=== PATIENT | male | born 1985 | race Two or more races ===

== ENCOUNTER 2017-11-09 23:12 | Inpatient (IN) | payer OTHER ==
[~2017-11-09] VITALS: Ht 170.2 cm; Wt 70.0 kg
[2017-11-10 00:47] LABS: HEMATOCRIT 49.8 % (38.0-50.0); HEMOGLOBIN 18.2 G/DL (12.5-16.6); MCH 34.4 PG (29.0-34.0); MCHC 36.5 G/DL (30.0-36.0); MCV 94.1 FL (86-99); PLATELET COUNT 278 K/uL (156-360); RBC DIS.WIDTH-CV 11.7 % (11.8-14.6); RBC DIS.WIDTH-SD 40.6 % (39-53); RED BLOOD COUNT 5.29 M/uL (4.00-5.50); WHITE BLOOD COUNT 12.8 K/uL (4.1-10.2)
[2017-11-10 00:58] LABS: AMPHETAMINE NEGATIVE (500 ng/mL); BARBITURATES NEGATIVE (200 ng/mL); BENZODIAZEPINES NEGATIVE (150 ng/mL); BUPRENORPHINE NEGATIVE (10 ng/mL); COCAINE NEGATIVE (150 ng/mL); METHADONE NEGATIVE (200 ng/mL); METHAMPHETAMINE NEGATIVE (500 ng/mL); OPIATES (MORPHINE) NEGATIVE (100 ng/mL); OXYCODONE NEGATIVE (100 ng/mL); PHENCYCLIDINE NEGATIVE (25 ng/mL); PROPOXYPHENE NEGATIVE (300 ng/mL); THC CANNABINOIDS NEGATIVE (50 ng/mL); TRICYCLIC ANTIDEPRESSANTS NEGATIVE (300 ng/mL)
[2017-11-10 01:05] LABS: CHLORIDE 107 mEq/L (99-109); POTASSIUM 3.7 mEq/L (3.7-5.4); SODIUM 144 mEq/L (136-147)
[2017-11-10 01:07] LABS: GLUCOSE 112 mg/dL (70-99)
[2017-11-10 01:10] LABS: SERUM ETHYL ALCOHOL 221 mg/dL
[2017-11-10 01:11] LABS: CREATININE 0.9 mg/dL (0.6-1.3); GFR ESTIMATE (CALCULATED) > 59 mL/min/ (58.99-99999)
[2017-11-10 01:12] LABS: UREA NITROGEN (BUN) 15 mg/dL (9-23)
[2017-11-10 09:49] VITALS: BP 139/84
[2017-11-10 15:59] VITALS: BP 136/69
[2017-11-11 07:51] VITALS: BP 134/73
[2017-11-11] MEDS ORDERED: DISULFIRAM250 MG PO (09:39)
[2017-11-11] MEDS ORDERED: EFFEXOR XR37.5 MG PO (09:39)
[2017-11-11] MEDS ORDERED: DESYREL100 MG PO (09:39)
== END 2017-11-11 14:28 | disposition home or self-care (01) | DRG 882 ==
LOC: EME → EDBD 23:12 → EME 23:12 → 1WEST 11-10 06:11 → EDOF 11-10 06:11 → ENRESERV 11-10 09:33 → 1WEST 11-10 09:34
PROVIDERS: Emergency Medicine
DX: F43.25 Adjustment disorder with mixed disturbance of emotions and conduct (principal); R45.851 Suicidal ideations; F17.200 Nicotine dependence, unspecified, uncomplicated; F10.229 Alcohol dependence with intoxication, unspecified; F90.9 Attention-deficit hyperactivity disorder, unspecified type
CPT/HCPCS: 80048; 85027; 90837; 99281; 99285; G0480

== ENCOUNTER 2017-12-15 22:07 | Emergency (ER) | payer OTHER ==
[~2017-12-15] VITALS: Ht 167.6 cm; Wt 65.2 kg
[~2017-12-15 22:07] MED LIST: DESYREL100 MG PO; DISULFIRAM250 MG PO; EFFEXOR XR37.5 MG PO
[2017-12-16] MEDS ORDERED: EFFEXOR XR37.5 MG PO (00:19)
[2017-12-16 00:34] VITALS: BP 151/98
== END 2017-12-16 00:36 | disposition home or self-care (01) ==
LOC: EME 22:07 → EXP 22:07
DX: Z76.0 Encounter for issue of repeat prescription (principal); F31.9 Bipolar disorder, unspecified
CPT/HCPCS: 99281; 99283

== ENCOUNTER 2017-12-21 10:24 | Emergency (ER) | payer OTHER ==
[~2017-12-21] VITALS: Ht 167.6 cm; Wt 64.7 kg
[2017-12-21] MEDS ORDERED: EFFEXOR XR37.5 MG PO (11:18)
[2017-12-21] MEDS ORDERED: DESYREL100 MG PO (11:18)
[2017-12-21] MEDS ORDERED: ANTABUSE500 MG PO (11:18)
[2017-12-21 11:32] VITALS: BP 131/94
== END 2017-12-21 11:33 | disposition home or self-care (01) ==
LOC: EME 10:24
DX: F41.9 Anxiety disorder, unspecified (principal); Z76.0 Encounter for issue of repeat prescription; F43.25 Adjustment disorder with mixed disturbance of emotions and conduct; F31.9 Bipolar disorder, unspecified; F90.9 Attention-deficit hyperactivity disorder, unspecified type; F17.200 Nicotine dependence, unspecified, uncomplicated
CPT/HCPCS: 90839; 99281; 99283

== ENCOUNTER 2017-12-22 11:15 | Emergency (ER) | payer OTHER ==
[~2017-12-22] VITALS: Ht 167.6 cm; Wt 64.0 kg
[~2017-12-22 11:15] MED LIST changes: +ANTABUSE500 MG PO
[2017-12-22 12:11] VITALS: BP 126/84
== END 2017-12-22 12:16 | disposition home or self-care (01) ==
LOC: EME 11:15
DX: F41.9 Anxiety disorder, unspecified (principal); Z02.9 Encounter for administrative examinations, unspecified
CPT/HCPCS: 99281; 99283

== ENCOUNTER 2018-02-19 15:53 | Emergency (ER) | payer OTHER ==
[~2018-02-19] VITALS: Ht 167.6 cm; Wt 65.4 kg
[2018-02-19] MEDS ORDERED: NAPROSYN500 MG PO (17:01)
[2018-02-19] MEDS ORDERED: FLEXERIL10 MG PO (17:01)
[2018-02-19] MEDS ORDERED: VOLTAREN 1% GE100 GM TP (17:09)
[2018-02-19 17:12] VITALS: BP 126/78
== END 2018-02-19 17:13 | disposition home or self-care (01) ==
LOC: EME 15:53
DX: M46.1 Sacroiliitis, not elsewhere classified (principal); M54.41 Lumbago with sciatica, right side; M41.9 Scoliosis, unspecified; Z88.5 Allergy status to narcotic agent
CPT/HCPCS: 99281; 99283; J1885

== ENCOUNTER 2018-02-23 13:37 | Emergency (ER) | payer OTHER ==
[~2018-02-23] VITALS: Ht 167.6 cm; Wt 66.4 kg
[~2018-02-23 13:37] MED LIST changes: +FLEXERIL10 MG PO; +NAPROSYN500 MG PO; +VOLTAREN 1% GE100 GM TP
[2018-02-23] MEDS ORDERED: FLEXERIL10 MG PO (14:25)
[2018-02-23 14:59] VITALS: BP 123/66
== END 2018-02-23 15:00 | disposition home or self-care (01) ==
LOC: EME 13:37
DX: M54.16 Radiculopathy, lumbar region (principal); F41.9 Anxiety disorder, unspecified; F31.9 Bipolar disorder, unspecified; Z88.5 Allergy status to narcotic agent; Z72.0 Tobacco use
CPT/HCPCS: 99281; 99284; J1100; J1885

== ENCOUNTER 2018-03-01 14:31 | Emergency (ER) | payer OTHER | END 2018-03-01 15:09 | disposition left against medical advice (07) | LOC: EME 14:31 | DX: M54.9 Dorsalgia, unspecified (principal); Z53.21 Procedure and treatment not carried out due to patient leaving prior to being seen by health care provider ==